=== PATIENT | male | born 1955 | race African-American/Black ===

== ENCOUNTER → 2017-04-22 | Day surgery (SDC) | payer BC, MEDICARE ==
[~2017-04-22] MED LIST: ALBUTEROL17 GM INH; AMOXICILLIN PO; DIOVAN160 MG PO; LEVAQUIN PO; MEDROL PO; MUCINEX DM1 TAB.SR . PO; REMICADE IV; TEVETEN600 MG PO; TUSSIN MAX15 MG/5 M1 PO
--- NOTE | ~2017-04-22 | OR ---
Unit #: [id number] #: [id number] Patient: PEDRO CARRILLO JR [id number] [address] [place], [place] [address] [id number] O MR#: [id number] NAME: PEDRO CARRILLO JR ROOM: Date of Procedure: 04/22/2017 Admission Date: 04/22/2017 Surgeon: Rodolfo Chan M.D. : 1955 Attending Physician: Rodolfo Chan M.D. Primary Care Physician: Luigi Mojica M.D. OPERATIVE REPORT PREOPERATIVE DIAGNOSIS Colorectal cancer screening in an average-risk patient. PROCEDURES PERFORMED Colonoscopy and polypectomy. POSTOPERATIVE DIAGNOSES 1. Single sessile polyp in the proximal ascending colon. This was about 6 to 7 mm in size and was removed using snare polypectomy. 2. Moderate pandiverticulosis. 3. Rest of the examination up to cecum was normal. The quality of the prep was good. RECOMMENDATIONS 1. Follow up the results of polyp histology. 2. Consider repeat colonoscopy in 5 years. SEDATION USED MAC. DESCRIPTION OF PROCEDURE Following detailed explanation of potential risks and complications of a colonoscopy, namely perforation, bleeding, and complication related to sedation, the patient was brought to GI lab and laid in the left lateral decubitus position. A digital rectal examination was performed, which was normal. Lubricated tip of the Olympus video colonoscope was inserted through the anus and advanced under direct vision. The scope was advanced past rectosigmoid into descending colon. Multiple medium-sized diverticula were noted in this area. The scope tip was then navigated all the way up to cecum with visualization of the ileocecal valve and the appendiceal orifice. Preparation was excellent with good visualization and photodocumentation was obtained. Last several inches of terminal ileum were also visualized after intubation of the ileocecal valve and appeared normal. Successive segments of colonic mucosa were examined upon withdrawal. A single sessile polyp was noted in the proximal ascending colon. The latter was removed using snare polypectomy. It was retrieved and sent for histology. No additional polyps were noted. The patient did have evidence of moderate pandiverticulosis. No hemorrhoids were noted at the anal verge. The scope was then withdrawn and the patient returned to the recovery area. He tolerated the procedure without any postprocedure complications. Unit #: [id number] #: [id number] Patient: GERARDO CAVAZOSVASQUEZ Dictated by... Robyn Bullard/sandy TD: 04/22/2017 12:10 JOB #: [id number] CC: Luigi Mojica M.D. OPERATIVE REPORT Page 1 of 1 X Rodolfo Chan MD X PROCEDURE OPERATIVE NOTE
== END | disposition home or self-care (01) ==
LOC: COPS 08:31
DX: Z12.11 Encounter for screening for malignant neoplasm of colon (principal); D12.2 Benign neoplasm of ascending colon; K57.30 Diverticulosis of large intestine without perforation or abscess without bleeding; I10 Essential (primary) hypertension; Z79.899 Other long term (current) drug therapy; Z87.442 Personal history of urinary calculi; Z98.890 Other specified postprocedural states
CPT/HCPCS: 88305